=== PATIENT | female | born 1965 | race Hispanic/Latino ===

== ENCOUNTER 2018-01-31 08:58 | Outpatient (CLI) | payer OTHER ==
--- NOTE | 2018-01-31 12:10 | MRI ---
MRI BRAIN: HISTORY: Intractable headache. Migraine with aura. G43.109. FINDINGS: Multiplanar, multisequence pre- and postcontrast-enhanced MRI images of the brain obtained. MRI images demonstrate no evidence of intracranial masses, hemorrhages, strokes, or contusions. No e vidence of diffusion restriction seen. No significant evidence of intracranial pathology noted. No abnormal areas of intracranial enhancement seen. Moderate degree of right maxillary sinus mucosal th ickening is seen. IMPRESSION: Unremarkable pre- and postcontrast-enhanced MRI images of the brain. POS: YESSENIA
== END 2018-01-31 08:59 | disposition home or self-care (01) ==
LOC: SCSMRI 08:58
PROVIDERS: ATTEND Psychiatry & Neurology Neurology
DX: G43.109 Migraine with aura, not intractable, without status migrainosus (principal)
CPT/HCPCS: 70553

== ENCOUNTER 2018-09-04 13:48 | Outpatient (CLI) | payer OTHER ==
--- NOTE | 2018-09-04 15:27 | MMO ---
BILATERAL SCREENING MAMMOGRAMS: DATE: 09/04/18 Reference made to prior mammograms dating back to 09/21/11. This patient's mammogram was interpreted with the assistance of computer-aided detection. FINDINGS: There is heterogeneously dense breast parenchyma bilaterally. Benign-appearing calcifications are pre sent within each breast, without evidence of dominant mass or suspicious cluster of microcalcificatio ns. IMPRESSION: BIRADS 2: Benign Finding(s) Annual screening mammography is recommended. POS: YESSENIA
== END 2018-09-04 13:49 | disposition home or self-care (01) ==
LOC: SCSMAMMO 13:48
PROVIDERS: ATTEND Family Medicine
DX: Z12.31 Encounter for screening mammogram for malignant neoplasm of breast (principal)
CPT/HCPCS: 77067

== ENCOUNTER 2019-10-28 07:32 | Outpatient (CLI) | payer OTHER ==
--- NOTE | 2019-10-28 08:14 | BD ---
DEXA BONE DENSITY SCAN: 10/28/2019 HISTORY: Postmenopausal female undergoing screening for osteoporosis. COMPARISON: None. FINDINGS: LUMBAR SPINE BMD (g/cm2) T-SCORE L1 0.849 -1.3 L2 0.900 -1.2 L3 0.837 -2.2 L4 0.899 -1.5 TOTAL 0.873 -1.6 FEMORAL NECK 0.671 -1.6 TOTAL 0.935 -0.1 The FRAX-WHO Fracture Risk Assessment Tool reports a 3% risk for a major osteoporotic fracture and a 0.3% risk for a hip fracture in an untreated patient. IMPRESSION: There is osteopenia within the lumbar spine and the femoral neck correlating with a moderately increa sed risk for fracture. Transcribed Date/Time: 10/28/2019 9:55 AM
--- NOTE | 2019-10-28 08:42 | MMO ---
Bilateral MAMMO Bilat Screen [facility]. CLINICAL HISTORY: Patient is 54 years old and is seen for screening. The patient has no family history of breast cancer. The patient has no personal history of cancer. VIEWS: The views performed were: bilateral craniocaudal; bilateral mediolateral oblique; and right exaggerated craniocaudal. FILMS COMPARED: The present examination has been compared to prior imaging studies performed at [facility] [place] on 08/27/2014, 08/29/2015, 08/30/2016 and 09/02/2017. This study has been interpreted with the assistance of computer-aided detection. MAMMOGRAM FINDINGS: There are scattered fibroglandular densities. There are benign appearing calcifications seen in both breasts. There are no suspicious masses, suspicious calcifications, or new areas of architectural distortion. IMPRESSION: THERE IS NO MAMMOGRAPHIC EVIDENCE OF MALIGNANCY. A ROUTINE FOLLOW-UP MAMMOGRAM IN 1 YEAR IS RECOMMENDED. ACR BI-RADS Category 2 - Benign finding MAMMOGRAPHY NOTE: 1. A negative mammogram report should not delay a biopsy if a dominant of clinically suspicious mass is present. 2. Approximately 10% to 15% of breast cancers are not detected by mammography. 3. Adenosis and dense breasts may obscure an underlying neoplasm. Reported by: ROCIO NASH MD Electonically Signed: [id number]
== END 2019-10-28 07:33 | disposition home or self-care (01) ==
LOC: BICMAMMO 07:32
PROVIDERS: ATTEND Family Medicine
DX: Z12.31 Encounter for screening mammogram for malignant neoplasm of breast (principal); Z13.820 Encounter for screening for osteoporosis; M85.89 Other specified disorders of bone density and structure, multiple sites
CPT/HCPCS: 77067; 77080

== ENCOUNTER 2021-01-18 06:45 | Outpatient (CLI) | payer OTHER | END 2021-01-18 06:46 | disposition home or self-care (01) | LOC: BICULT 06:45 | PROVIDERS: ATTEND Nurse Practitioner Family | DX: Z12.31 Encounter for screening mammogram for malignant neoplasm of breast (principal); N95.0 Postmenopausal bleeding; N85.4 Malposition of uterus; D25.9 Leiomyoma of uterus, unspecified | CPT/HCPCS: 76856; 77067 ==

== ENCOUNTER 2021-08-01 10:27 | Outpatient (CLI) | payer OTHER | END 2021-08-01 10:28 | disposition home or self-care (01) | LOC: BICULT 10:27 | PROVIDERS: ATTEND Nurse Practitioner Family | DX: R74.8 Abnormal levels of other serum enzymes (principal); K76.9 Liver disease, unspecified | CPT/HCPCS: 76705 ==

== ENCOUNTER 2021-08-11 07:15 | Outpatient (CLI) | payer OTHER ==
[2021-08-11] MEDS ORDERED: Iopamidol 370 76% 100 ML VIAL ONE (10:47)
== END 2021-08-11 07:16 | disposition home or self-care (01) ==
LOC: BICCT 07:15
PROVIDERS: ATTEND Nurse Practitioner Family
DX: R16.0 Hepatomegaly, not elsewhere classified (principal)
CPT/HCPCS: 74160; Q9967

== ENCOUNTER 2021-08-17 01:04 | Inpatient (IN) | payer OTHER ==
[2021-08-17] MEDS ORDERED: Ondansetron PF 4 MG/2 ML Vial ONE (04:15)
[2021-08-17] MEDS ORDERED: Morphine 4 MG/ML VIAL ONE (04:15)
[2021-08-17 04:44] LABS: #Basophils 0.1 thou/uL (0.0-0.2); #Lymphocytes 1.4 thou/uL (1.20-3.40); #Monocytes 0.4 thou/uL (0.11-0.59); #Neutrophils 6.1 thou/uL (1.40-6.50); %Basophils 0.6 % (0.0-1.0); %Eosinophils 0.6 % (0.0-10.0); %Monocytes 4.5 % (0.0-10.0); %Neutrophils 77.3 % (42.0-75.0); Hemoglobin 13.9 g/dL (12.0-16.0); Mean Corpuscular HGB CONC 35.1 g/dL (32.0-36.0); Mean Corpuscular Hemoglobin 32.3 pg (27.0-31.0); Mean Corpuscular Volume 92.1 fL (78.0-98.0); Mean Platelet Volume 7.2 fL (7.4-10.4); Platelet Count 251 thou/uL (130-400); RBC Distribution Width 12.2 % (11.5-14.5); Red Blood Cell (RBC) Count 4.32 mill/uL (4.20-5.40); White Blood Cell (WBC) Count 7.9 thou/uL (4.8-10.8)
[2021-08-17 04:54] LABS: ALT (SGPT) 120 U/L (8-55); AST (SGOT) 93 U/L (5-34); Albumin 4.3 g/dL (3.5-5.0); Alkaline Phosphatase 801 U/L (40-110); Anion Gap 13 mmol/L (10-20); BUN (Urea Nitrogen) 15 mg/dL (9.8-20.1); Bilirubin, Total 4.1 mg/dL (0.2-1.2); Calc. Creatinine Clearance 0 mL/min (70-130); Carbon Dioxide 25 mmol/L (22-29); Chloride 100 mmol/L (98-107); Globulin 3.9 g/dL (2.4-3.5); Glucose 138 mg/dL (70-105); Lipase 28 U/L (8-78); Potassium 3.9 mmol/L (3.5-5.1); Protein, Total 8.2 g/dL (6.0-8.3); Sodium 134 mmol/L (136-145)
[2021-08-17 07:08] LABS: Bilirubin Negative (Negative); Blood, Urine Negative (Negative); Clarity Extra Turbid (Clear); Glucose, Urine (Dipstick) Normal (Negative); Ketone, Urine Negative (Negative); Leukocyte Negative Leu/uL (Negative); Nitrite Negative (Negative); Protein, Urine (Dipstick) Negative (Neg-Trace); Specific Gravity, Urine 1.023 (1.002-1.036); Urobilinogen Normal mg/dL (Less than 2); pH, Urine 7.5 (5.0-9.0)
[2021-08-17] MEDS ORDERED: Iopamidol 370 76% 100 ML VIAL ONE (09:41)
[2021-08-17] MEDS ORDERED: Ondansetron ODT 4 MG TAB SL PRN (11:00)
[2021-08-17] MEDS ORDERED: Ondansetron PF 4 MG/2 ML Vial IVP PRN ×2 (11:00→14:43)
[2021-08-17] MEDS ORDERED: Acetaminophen 325 MG TAB PO PRN (11:00)
[2021-08-17] MEDS: Sodium Chloride 0.9% 1,000 ML IV SCH ×2 (12:29→21:45)
[2021-08-17] MEDS ORDERED: hydrALAZINE 20 MG/ML VIAL SLOW IVP PRN (14:43)
[2021-08-17] MEDS ORDERED: Ondansetron ODT 4 MG TAB PO PRN (14:43)
[2021-08-17] MEDS ORDERED: Labetalol HCl 100 MG/20 ML VIAL SLOW IVP PRN (14:43)
[2021-08-17 15:16] LABS: SARS-CoV-2 PCR by NAA Not Detected (NotDetected)
[2021-08-18] MEDS ORDERED: diphenhydrAMINE 50 MG/ML VIAL ONE (01:55)
[2021-08-18 06:58] LABS: #Eosinphils 0.1 thou/uL (0.0-0.7); #Lymphocytes 1.6 thou/uL (1.20-3.40); #Monocytes 0.4 thou/uL (0.11-0.59); #Neutrophils 3.2 thou/uL (1.40-6.50); %Basophils 0.3 % (0.0-1.0); %Eosinophils 2.5 % (0.0-10.0); %Lymphocytes 29.9 % (21.0-51.0); %Monocytes 7.3 % (0.0-10.0); %Neutrophils 60.1 % (42.0-75.0); Hemoglobin 11.8 g/dL (12.0-16.0); Mean Corpuscular HGB CONC 34.1 g/dL (32.0-36.0); Mean Corpuscular Hemoglobin 31.6 pg (27.0-31.0); Mean Corpuscular Volume 92.7 fL (78.0-98.0); Mean Platelet Volume 7.5 fL (7.4-10.4); Platelet Count 211 thou/uL (130-400); RBC Distribution Width 12.3 % (11.5-14.5); Red Blood Cell (RBC) Count 3.74 mill/uL (4.20-5.40); White Blood Cell (WBC) Count 5.4 thou/uL (4.8-10.8)
[2021-08-18 07:18] LABS: ALT (SGPT) 95 U/L (8-55); AST (SGOT) 68 U/L (5-34); Albumin 3.3 g/dL (3.5-5.0); Alkaline Phosphatase 661 U/L (40-110); Anion Gap 11 mmol/L (10-20); BUN (Urea Nitrogen) 12 mg/dL (9.8-20.1); Calc. Creatinine Clearance 99 mL/min (70-130); Calcium 8.5 mg/dL (7.8-10.44); Carbon Dioxide 20 mmol/L (22-29); Chloride 111 mmol/L (98-107); Globulin 3.3 g/dL (2.4-3.5); Glucose 99 mg/dL (70-105); Potassium 3.8 mmol/L (3.5-5.1); Protein, Total 6.6 g/dL (6.0-8.3); Sodium 138 mmol/L (136-145)
[2021-08-18 07:21] LABS: INR-International Normal Ratio 0.9; PTT 29.6 sec (22.9-36.1); Prothrombin Time 11.9 sec (12.0-14.7)
[2021-08-18] MEDS ORDERED: diphenhydrAMINE 25 MG CAP PO PRN (07:37)
[2021-08-18] MEDS: Morphine 2 MG/ML VIAL SLOW IVP PRN ×2 (08:01→15:34)
[2021-08-18] MEDS: Sodium Chloride 0.9% 1,000 ML IV SCH ×2 (08:03→18:18)
[2021-08-18] MEDS ORDERED: Sodium Bicarbonate 2.5 MEQ/5 ML VIAL ONE (12:59)
[2021-08-18] MEDS ORDERED: Midazolam HCl 2 mg/2 ml Vial ONE (12:59)
[2021-08-18] MEDS ORDERED: Fentanyl 100 MCG/2 ML VIAL ONE (13:00)
[2021-08-18] MEDS ORDERED: Albuterol Sulfate 2.5 mg/3 ml Neb NEB PRN (14:19)
[2021-08-18] MEDS: levETIRAcetam 500 MG TAB PO SCH (21:18)
[2021-08-18] MEDS: Topiramate 100 MG TAB PO SCH (21:19)
[2021-08-18] MEDS: lamoTRIgine 100 MG TAB PO SCH (21:20)
[2021-08-19] MEDS: Morphine 2 MG/ML VIAL SLOW IVP PRN (03:58)
[2021-08-19] MEDS: Sodium Chloride 0.9% 1,000 ML IV SCH ×2 (03:58→14:42)
[2021-08-19 04:37] VITALS: BMI 25.4
[2021-08-19 06:59] LABS: #Eosinphils 0.1 thou/uL (0.0-0.7); #Lymphocytes 1.7 thou/uL (1.20-3.40); #Monocytes 0.4 thou/uL (0.11-0.59); #Neutrophils 3.2 thou/uL (1.40-6.50); %Basophils 0.4 % (0.0-1.0); %Eosinophils 1.4 % (0.0-10.0); %Lymphocytes 32.1 % (21.0-51.0); %Monocytes 6.6 % (0.0-10.0); %Neutrophils 59.6 % (42.0-75.0); Hemoglobin 11.1 g/dL (12.0-16.0); Mean Corpuscular Hemoglobin 33.8 pg (27.0-31.0); Mean Corpuscular Volume 93.7 fL (78.0-98.0); Mean Platelet Volume 7.2 fL (7.4-10.4); Platelet Count 182 thou/uL (130-400); RBC Distribution Width 12.4 % (11.5-14.5); White Blood Cell (WBC) Count 5.4 thou/uL (4.8-10.8)
[2021-08-19 07:16] LABS: ALT (SGPT) 88 U/L (8-55); AST (SGOT) 64 U/L (5-34); Albumin 3.1 g/dL (3.5-5.0); Alkaline Phosphatase 606 U/L (40-110); Anion Gap 10 mmol/L (10-20); BUN (Urea Nitrogen) 9 mg/dL (9.8-20.1); Bilirubin, Total 3.3 mg/dL (0.2-1.2); Calc. Creatinine Clearance 114 mL/min (70-130); Calcium 8.1 mg/dL (7.8-10.44); Carbon Dioxide 20 mmol/L (22-29); Chloride 112 mmol/L (98-107); Globulin 2.6 g/dL (2.4-3.5); Glucose 93 mg/dL (70-105); Potassium 3.8 mmol/L (3.5-5.1); Protein, Total 5.7 g/dL (6.0-8.3); Sodium 138 mmol/L (136-145)
[2021-08-19] MEDS: lamoTRIgine 100 MG TAB PO SCH (08:07)
[2021-08-19] MEDS: levETIRAcetam 500 MG TAB PO SCH (08:07)
[2021-08-19] MEDS: Topiramate 100 MG TAB PO SCH (08:07)
[2021-08-19] MEDS ORDERED: Losartan/Hydrochlorothiazide 100 mg/25 mg Tablet PO SCH (09:00)
[2021-08-19 12:22] VITALS: BP 114/73; TEMP 98.5
== END 2021-08-19 15:25 | disposition home or self-care (01) | DRG 437 ==
LOC: ERS 01:04 → SURG B 08:45
PROVIDERS: ADMIT Internal Medicine; ATTEND Internal Medicine
PROC: 0FB03ZX Excision of Liver, Percutaneous Approach, Diagnostic (ICD-10-PCS; principal; 2021-08-18)
DX: C22.1 Intrahepatic bile duct carcinoma (principal); E78.5 Hyperlipidemia, unspecified; K83.8 Other specified diseases of biliary tract; Z20.822 Contact with and (suspected) exposure to COVID-19; G40.909 Epilepsy, unspecified, not intractable, without status epilepticus; F25.9 Schizoaffective disorder, unspecified; I10 Essential (primary) hypertension; I95.9 Hypotension, unspecified; E78.00 Pure hypercholesterolemia, unspecified; J45.909 Unspecified asthma, uncomplicated; Z79.51 Long term (current) use of inhaled steroids; Z79.899 Other long term (current) drug therapy
CPT/HCPCS: 36415; 47000; 74177; 76705; 77012; 80053; 81003; 83690; 85025; 85610; 85730; 86301; 88307; 88313; 88333; 88341; 88342; 96374; 96375; J1200; J2250; J2270; J2405; J3010; J7050; Q0163; Q9967; U0003; U0005

== ENCOUNTER 2021-09-06 13:40 | Outpatient (CLI) | payer OTHER ==
[~2021-09-06 13:40] MED LIST: Iopamidol-370 76% 500 ML 1 ML ONE
== END 2021-09-06 13:41 | disposition home or self-care (01) ==
LOC: BICCT 13:40
PROVIDERS: ATTEND Internal Medicine Hematology & Oncology
DX: C22.8 Malignant neoplasm of liver, primary, unspecified as to type (principal); C22.1 Intrahepatic bile duct carcinoma; R16.0 Hepatomegaly, not elsewhere classified; K82.8 Other specified diseases of gallbladder; R91.8 Other nonspecific abnormal finding of lung field
CPT/HCPCS: 71260; Q9967

== ENCOUNTER 2021-11-07 09:13 | Outpatient (CLI) | payer OTHER | END 2021-11-07 09:14 | disposition home or self-care (01) | LOC: BICCT 09:13 | PROVIDERS: ATTEND Internal Medicine Hematology & Oncology | DX: C22.1 Intrahepatic bile duct carcinoma (principal); K57.30 Diverticulosis of large intestine without perforation or abscess without bleeding | CPT/HCPCS: 71260; 74177 ==

== ENCOUNTER 2021-12-24 11:47 | Emergency (ER) | payer MEDICAID, OTHER ==
[2021-12-24 13:15] LABS: #Lymphocytes 1.2 thou/uL (1.20-3.40); #Monocytes 0.5 thou/uL (0.11-0.59); #Neutrophils 3.1 thou/uL (1.40-6.50); %Basophils 0.2 % (0.0-1.0); %Eosinophils 0.8 % (0.0-10.0); %Lymphocytes 24.5 % (21.0-51.0); %Monocytes 11.3 % (0.0-10.0); %Neutrophils 63.2 % (42.0-75.0); Hemoglobin 12.2 g/dL (12.0-16.0); Mean Corpuscular HGB CONC 36.2 g/dL (32.0-36.0); Mean Corpuscular Hemoglobin 34.8 pg (27.0-31.0); Mean Corpuscular Volume 96.1 fL (78.0-98.0); Mean Platelet Volume 6.4 fL (7.4-10.4); Platelet Count 120 thou/uL (130-400); Red Blood Cell (RBC) Count 3.52 mill/uL (4.20-5.40); White Blood Cell (WBC) Count 4.8 thou/uL (4.8-10.8)
[2021-12-24] MEDS ORDERED: Ondansetron PF 4 MG/2 ML Vial ONE (13:21)
[2021-12-24] MEDS ORDERED: Morphine 4 MG/ML VIAL ONE (13:22)
[2021-12-24 13:38] LABS: ALT (SGPT) 43 U/L (8-55); AST (SGOT) 55 U/L (5-34); Albumin 4.2 g/dL (3.5-5.0); Alkaline Phosphatase 409 U/L (40-110); Anion Gap 12 mmol/L (10-20); BUN (Urea Nitrogen) 17 mg/dL (9.8-20.1); Bilirubin, Total 0.6 mg/dL (0.2-1.2); Calc. Creatinine Clearance 0 mL/min (70-130); Calcium 9.5 mg/dL (7.8-10.44); Carbon Dioxide 26 mmol/L (22-29); Chloride 105 mmol/L (98-107); Globulin 3.8 g/dL (2.4-3.5); Glucose 144 mg/dL (70-105); Lipase 24 U/L (8-78); Potassium 3.6 mmol/L (3.5-5.1); Sodium 139 mmol/L (136-145)
[2021-12-24 14:08] LABS: Bilirubin Negative (Negative); Blood, Urine Negative (Negative); Clarity Clear (Clear); Glucose, Urine (Dipstick) Normal (Negative); Ketone, Urine Negative (Negative); Leukocyte Negative Leu/uL (Negative); Nitrite Negative (Negative); Protein, Urine (Dipstick) Negative (Neg-Trace); Specific Gravity, Urine 1.023 (1.002-1.036); Urobilinogen Normal mg/dL (Less than 2); pH, Urine 5.5 (5.0-9.0)
== END 2021-12-24 16:10 | disposition home or self-care (01) ==
LOC: ERS 11:47
DX: C22.9 Malignant neoplasm of liver, not specified as primary or secondary (principal); Z79.899 Other long term (current) drug therapy
CPT/HCPCS: 36415; 74177; 80053; 81003; 83690; 85025; 93005; 96374; 96375; J2270; J2405; Q9967

== ENCOUNTER 2022-02-16 07:52 | Outpatient (CLI) | payer OTHER ==
[2022-02-16] MEDS ORDERED: Iopamidol 370 76% 100 ML VIAL ONE (12:22)
== END 2022-02-16 07:53 | disposition home or self-care (01) ==
LOC: CT 07:52
PROVIDERS: ATTEND Internal Medicine Hematology & Oncology
DX: C22.1 Intrahepatic bile duct carcinoma (principal); C22.8 Malignant neoplasm of liver, primary, unspecified as to type; R18.8 Other ascites
CPT/HCPCS: 71260; 74177; Q9967

== ENCOUNTER 2022-02-20 08:49 | Day surgery (SDC) | payer OTHER ==
[2022-02-20] MEDS ORDERED: diphenhydrAMINE 25 MG CAP ONE (09:10)
[2022-02-20] MEDS ORDERED: Acetaminophen 500 MG TAB ONE (09:10)
[2022-02-20 14:12] VITALS: BP 118/57; TEMP 98.3
== END 2022-02-20 14:13 | disposition home or self-care (01) ==
LOC: ONC/OP 08:49
PROVIDERS: ATTEND Internal Medicine Hematology & Oncology
PROC: 30233N1 Transfusion of Nonautologous Red Blood Cells into Peripheral Vein, Percutaneous Approach (ICD-10-PCS; principal; 2022-02-20)
DX: D64.9 Anemia, unspecified (principal); D69.6 Thrombocytopenia, unspecified
CPT/HCPCS: 36430; 86850; 86900; 86901; J1642; P9016

== ENCOUNTER 2022-06-12 16:27 | Inpatient (IN) | payer OTHER ==
[2022-06-12] MEDS ORDERED: Acetaminophen 500 MG TAB ONE (18:02)
[2022-06-12 18:21] LABS: Hemoglobin 5.5 g/dL (12.0-16.0); Mean Corpuscular HGB CONC 34.8 g/dL (32.0-36.0); Mean Corpuscular Hemoglobin 35.4 pg (27.0-31.0); Mean Platelet Volume 7.7 fL (7.4-10.4); Platelet Count 22 thou/uL (130-400); RBC Distribution Width 15.9 % (11.5-14.5); Red Blood Cell (RBC) Count 1.55 mill/uL (4.20-5.40); White Blood Cell (WBC) Count 1.8 thou/uL (4.8-10.8)
[2022-06-12] MEDS ORDERED: Pantoprazole 40 MG VIAL ONE (18:32)
[2022-06-12 18:35] LABS: Anisocytosis SLIGHT = 6-15 cells (100X) (0-5/hpf); Band 16 % (5-11); Lymphocytes 13 % (21-51); MDiff Complete? YES; Macrocytosis SLIGHT = 6-15 cells (100X) (0-5/hpf); Monocytes 23 % (0-10); Neutrophil 47 % (42-75); Ovalocytes SLIGHT = 2-5 cells (100X) (0-1/hpf); Platelet Morphology Comment Appears Decreased; Polychromasia MODERATE = 3-4 cells (100X) (0-2/hpf); Reactive Lymphocytes 1 % (0-10); Reflex for Review?? YES
[2022-06-12 18:40] LABS: ALT (SGPT) 17 U/L (8-55); AST (SGOT) 29 U/L (5-34); Albumin 3.1 g/dL (3.5-5.0); Alkaline Phosphatase 98 U/L (40-110); Anion Gap 11 mmol/L (10-20); BUN (Urea Nitrogen) 22 mg/dL (9.8-20.1); Bilirubin, Total 0.5 mg/dL (0.2-1.2); CK (CPK) 71 U/L (29-168); Calc. Creatinine Clearance 0 mL/min (70-130); Calcium 8.3 mg/dL (7.8-10.44); Carbon Dioxide 23 mmol/L (22-29); Chloride 107 mmol/L (98-107); Estimated GFR 102; Globulin 2.6 g/dL (2.4-3.5); Glucose 122 mg/dL (70-105); Lipase 36 U/L (8-78); Potassium 3.8 mmol/L (3.5-5.1); Protein, Total 5.7 g/dL (6.0-8.3); Sodium 137 mmol/L (136-145)
[2022-06-12 18:44] LABS: INR-International Normal Ratio 1.3; Prothrombin Time 15.9 sec (12.0-14.7)
[2022-06-12 18:45] LABS: PTT 34.8 sec (22.9-36.1)
[2022-06-12 19:47] LABS: Bacteria/HPF None Seen HPF (None Seen); Bilirubin Negative (Negative); Blood, Urine Trace (Negative); Clarity Clear (Clear); Glucose, Urine (Dipstick) Normal (Negative); Ketone, Urine Negative (Negative); Leukocyte Negative Leu/uL (Negative); Nitrite Negative (Negative); Protein, Urine (Dipstick) Negative (Neg-Trace); RBC/HPF 0-3 HPF (0-3); Specific Gravity, Urine 1.009 (1.002-1.036); Squamous Epithelial 0-3 HPF (0-3); Urobilinogen Normal mg/dL (Less than 2); WBC/HPF 0-3 HPF (0-3)
[2022-06-12 19:50] LABS: SARS-CoV-2 NAA Rapid Test DETECTED (NotDetected)
[2022-06-12] MEDS ORDERED: Ondansetron ODT 4 MG TAB SL PRN (23:00)
[2022-06-12] MEDS ORDERED: Ondansetron PF 4 MG/2 ML Vial IVP PRN (23:00)
[2022-06-12] MEDS ORDERED: Acetaminophen 325 MG TAB PO PRN (23:00)
[2022-06-12] MEDS: Sodium Chloride 0.9% 1,000 ML IV SCH (23:40)
[2022-06-13 00:07] VITALS: BMI 28.8
[2022-06-13 05:09] LABS: Anion Gap 8 mmol/L (10-20); BUN (Urea Nitrogen) 18 mg/dL (9.8-20.1); Calc. Creatinine Clearance 120 mL/min (70-130); Calcium 7.7 mg/dL (7.8-10.44); Carbon Dioxide 22 mmol/L (22-29); Chloride 113 mmol/L (98-107); Estimated GFR 108; Glucose 87 mg/dL (70-105); Potassium 3.5 mmol/L (3.5-5.1); Sodium 139 mmol/L (136-145)
[2022-06-13 05:44] LABS: Band 8 % (5-11); Eosinophils 2 % (0-10); Hemoglobin 8.3 g/dL (12.0-16.0); Lymphocytes 32 % (21-51); MDiff Complete? YES; Mean Corpuscular Volume 97.1 fL (78.0-98.0); Metamyelocyte 1 % (0-0); Monocytes 8 % (0-10); Neutrophil 48 % (42-75); Nucleated RBC 1 % (0); Platelet Count 37 thou/uL (130-400); Platelet Morphology Comment Appears Decreased; RBC Distribution Width 14.9 % (11.5-14.5); RBC Morphology Normal; Red Blood Cell (RBC) Count 2.45 mill/uL (4.20-5.40); White Blood Cell (WBC) Count 1.8 thou/uL (4.8-10.8)
[2022-06-13] MEDS: Sodium Chloride 0.9% 1,000 ML IV SCH (07:12)
[2022-06-13] MEDS: Pantoprazole 40 MG VIAL IVP SCH ×2 (08:00→20:34)
[2022-06-13 12:33] LABS: Hemoglobin 9.2 g/dL (12.0-16.0)
[2022-06-13 21:04] LABS: Hemoglobin 9.4 g/dL (12.0-16.0)
[2022-06-14 04:14] LABS: Anion Gap 10 mmol/L (10-20); BUN (Urea Nitrogen) 11 mg/dL (9.8-20.1); Calc. Creatinine Clearance 114 mL/min (70-130); Calcium 7.4 mg/dL (7.8-10.44); Carbon Dioxide 21 mmol/L (22-29); Chloride 111 mmol/L (98-107); Estimated GFR 106; Glucose 82 mg/dL (70-105); Potassium 3.2 mmol/L (3.5-5.1); Sodium 139 mmol/L (136-145)
[2022-06-14 04:35] LABS: Band 8 % (5-11); Hypochromia SLIGHT = 6-15 cells (100X) (0-5/hpf); Lymphocytes 16 % (21-51); MDiff Complete? YES; Mean Corpuscular HGB CONC 35.4 g/dL (32.0-36.0); Mean Corpuscular Hemoglobin 33.8 pg (27.0-31.0); Mean Corpuscular Volume 95.4 fL (78.0-98.0); Mean Platelet Volume 8.4 fL (7.4-10.4); Monocytes 16 % (0-10); Neutrophil 60 % (42-75); Platelet Count 31 thou/uL (130-400); Platelet Morphology Comment Appears Decreased; RBC Distribution Width 15.7 % (11.5-14.5); Red Blood Cell (RBC) Count 2.95 mill/uL (4.20-5.40); White Blood Cell (WBC) Count 1.5 thou/uL (4.8-10.8)
[2022-06-14] MEDS: Pantoprazole 40 MG VIAL IVP SCH (07:42)
[2022-06-14] MEDS ORDERED: Potassium Chloride 20 MEQ TAB PO SCH (12:30)
[2022-06-14 12:31] VITALS: TEMP 98.4
[2022-06-14 13:52] LABS: Hemoglobin 9.8 g/dL (12.0-16.0)
[2022-06-16] MEDS ORDERED: Prevnar 13-Val Conj/PF 0.5 ML SYRINGE IM ONE (09:00)
== END 2022-06-14 16:47 | disposition home or self-care (01) | DRG 177 ==
LOC: ERS 16:27 → IMCU/EMU 21:02
PROVIDERS: ADMIT Internal Medicine; ATTEND Internal Medicine
PROC: 8E0ZXY6 Isolation (ICD-10-PCS; principal; 2022-06-12)
PROC: 30233N1 Transfusion of Nonautologous Red Blood Cells into Peripheral Vein, Percutaneous Approach (ICD-10-PCS; 2022-06-12)
PROC: 30233R1 Transfusion of Nonautologous Platelets into Peripheral Vein, Percutaneous Approach (ICD-10-PCS; 2022-06-13)
DX: U07.1 COVID-19 (principal); D61.810 Antineoplastic chemotherapy induced pancytopenia; D62 Acute posthemorrhagic anemia; C22.1 Intrahepatic bile duct carcinoma; K92.1 Melena; I10 Essential (primary) hypertension; Z23 Encounter for immunization; F20.9 Schizophrenia, unspecified; E78.00 Pure hypercholesterolemia, unspecified; T45.1X5A Adverse effect of antineoplastic and immunosuppressive drugs, initial encounter; G40.909 Epilepsy, unspecified, not intractable, without status epilepticus; Z79.51 Long term (current) use of inhaled steroids; Z79.82 Long term (current) use of aspirin; Z79.899 Other long term (current) drug therapy
CPT/HCPCS: 36415; 36430; 80048; 80053; 81003; 81015; 82550; 82728; 83550; 83605; 83690; 85025; 85060; 85610; 85730; 86850; 86860; 86870; 86880; 86900; 86901; 86905; 86922; 87040; 87086; 93005; 94760; C9113; J7050; P9016; P9035

== ENCOUNTER 2022-06-23 08:26 | Inpatient (IN) | payer OTHER ==
[2022-06-23 09:11] LABS: #Lymphocytes 0.3 thou/uL (1.20-3.40); #Monocytes 0.2 thou/uL (0.11-0.59); %Eosinophils 1.1 % (0.0-10.0); %Neutrophils 64.9 % (42.0-75.0)
[2022-06-23 09:13] LABS: Hemoglobin 5.3 g/dL (12.0-16.0); Mean Corpuscular HGB CONC 35.2 g/dL (32.0-36.0); Mean Corpuscular Hemoglobin 34.8 pg (27.0-31.0); Mean Corpuscular Volume 98.9 fL (78.0-98.0); Mean Platelet Volume 8.4 fL (7.4-10.4); Platelet Count 22 thou/uL (130-400); RBC Distribution Width 16.3 % (11.5-14.5); Red Blood Cell (RBC) Count 1.52 mill/uL (4.20-5.40); White Blood Cell (WBC) Count 1.6 thou/uL (4.8-10.8)
[2022-06-23 09:20] LABS: ALT (SGPT) 8 U/L (8-55); AST (SGOT) 12 U/L (5-34); Albumin 2.9 g/dL (3.5-5.0); Alkaline Phosphatase 90 U/L (40-110); Anion Gap 10 mmol/L (10-20); BUN (Urea Nitrogen) 19 mg/dL (9.8-20.1); Bilirubin, Total 0.3 mg/dL (0.2-1.2); Calc. Creatinine Clearance 0 mL/min (70-130); Calcium 7.8 mg/dL (7.8-10.44); Carbon Dioxide 22 mmol/L (22-29); Chloride 113 mmol/L (98-107); Estimated GFR 103; Globulin 2.2 g/dL (2.4-3.5); Glucose 153 mg/dL (70-105); Lipase 19 U/L (8-78); Potassium 3.6 mmol/L (3.5-5.1); Protein, Total 5.1 g/dL (6.0-8.3); Sodium 141 mmol/L (136-145)
[2022-06-23 09:34] LABS: Bacteria/HPF None Seen HPF (None Seen); Bilirubin Negative (Negative); Blood, Urine Negative (Negative); Clarity Clear (Clear); Glucose, Urine (Dipstick) Normal (Negative); Ketone, Urine Negative (Negative); Leukocyte 75 Leu/uL (Negative); Nitrite Negative (Negative); Protein, Urine (Dipstick) 10 mg/dL (Neg-Trace); RBC/HPF 0-3 HPF (0-3); Specific Gravity, Urine 1.032 (1.002-1.036); Urobilinogen Normal mg/dL (Less than 2)
[2022-06-23 09:37] LABS: INR-International Normal Ratio 1.1; PTT 31.3 sec (22.9-36.1); Prothrombin Time 14.6 sec (12.0-14.7)
[2022-06-23 11:57] LABS: Lactic Acid 1.5 mmol/L (0.5-2.2)
[2022-06-23] MEDS ORDERED: Prochlorperazine Maleate 5 MG TAB PO PRN (14:51)
[2022-06-23 16:02] LABS: #Lymphocytes 0.4 thou/uL (1.20-3.40); #Monocytes 0.3 thou/uL (0.11-0.59); #Neutrophils 1.2 thou/uL (1.40-6.50); %Lymphocytes 19.8 % (21.0-51.0); %Monocytes 14.4 % (0.0-10.0); %Neutrophils 63.8 % (42.0-75.0); Hemoglobin 6.6 g/dL (12.0-16.0); Mean Corpuscular HGB CONC 33.7 g/dL (32.0-36.0); Mean Corpuscular Volume 97.9 fL (78.0-98.0); Mean Platelet Volume 9.2 fL (7.4-10.4); Platelet Count 28 thou/uL (130-400); Red Blood Cell (RBC) Count 1.98 mill/uL (4.20-5.40); White Blood Cell (WBC) Count 1.9 thou/uL (4.8-10.8)
[2022-06-23 16:17] VITALS: BMI 29.0
[2022-06-23] MEDS: levETIRAcetam 500 MG TAB PO SCH (22:05)
[2022-06-23] MEDS: Topiramate 100 MG TAB PO SCH (22:05)
[2022-06-23] MEDS: lamoTRIgine 100 MG TAB PO SCH (22:06)
[2022-06-23] MEDS: Pantoprazole 40 MG VIAL IVP SCH (22:07)
[2022-06-24 00:49] LABS: #Lymphocytes 0.4 thou/uL (1.20-3.40); #Monocytes 0.3 thou/uL (0.11-0.59); #Neutrophils 1.8 thou/uL (1.40-6.50); %Eosinophils 0.8 % (0.0-10.0); %Lymphocytes 16.2 % (21.0-51.0); %Monocytes 10.8 % (0.0-10.0); %Neutrophils 72.1 % (42.0-75.0); Hemoglobin 8.2 g/dL (12.0-16.0); Mean Corpuscular HGB CONC 35.8 g/dL (32.0-36.0); Mean Corpuscular Hemoglobin 33.5 pg (27.0-31.0); Mean Corpuscular Volume 93.6 fL (78.0-98.0); Mean Platelet Volume 9.2 fL (7.4-10.4); Platelet Count 27 thou/uL (130-400); RBC Distribution Width 15.3 % (11.5-14.5); Red Blood Cell (RBC) Count 2.46 mill/uL (4.20-5.40); White Blood Cell (WBC) Count 2.5 thou/uL (4.8-10.8)
[2022-06-24 06:08] LABS: Anion Gap 8 mmol/L (10-20); BUN (Urea Nitrogen) 11 mg/dL (9.8-20.1); Calc. Creatinine Clearance 103 mL/min (70-130); Calcium 8.1 mg/dL (7.8-10.44); Carbon Dioxide 24 mmol/L (22-29); Chloride 113 mmol/L (98-107); Estimated GFR 104; Glucose 98 mg/dL (70-105); Potassium 4.7 mmol/L (3.5-5.1); Sodium 140 mmol/L (136-145)
[2022-06-24] MEDS ORDERED: Ketamine 50 MG/ML (10ML VIAL) ONE (07:10)
[2022-06-24] MEDS ORDERED: PROPOFOL 200 MG/20 ML VIAL ONE (08:03)
[2022-06-24] MEDS ORDERED: ePHEDrine 50 MG/ML VIAL ONE (08:03)
[2022-06-24] MEDS ORDERED: Promethazine HCl 25 MG/ML VIAL IM PRN (08:50)
[2022-06-24] MEDS ORDERED: Promethazine HCl 25 MG/ML VIAL IVPB PRN (08:50)
[2022-06-24] MEDS ORDERED: Ondansetron HCl/PF 4 MG/2 ML Vial IVP PRN (08:50)
[2022-06-24] MEDS: Topiramate 100 MG TAB PO SCH ×2 (10:32→20:48)
[2022-06-24] MEDS: lamoTRIgine 100 MG TAB PO SCH ×2 (10:32→20:48)
[2022-06-24] MEDS: levETIRAcetam 500 MG TAB PO SCH ×2 (10:32→20:47)
[2022-06-24] MEDS: Pantoprazole 40 MG VIAL IVP SCH ×2 (10:33→20:52)
[2022-06-24] MEDS: Acetaminophen 325 MG TAB PO PRN (20:48)
[2022-06-25 05:53] LABS: Anion Gap 11 mmol/L (10-20); BUN (Urea Nitrogen) 9 mg/dL (9.8-20.1); Calc. Creatinine Clearance 110 mL/min (70-130); Carbon Dioxide 20 mmol/L (22-29); Chloride 112 mmol/L (98-107); Estimated GFR 106; Glucose 150 mg/dL (70-105); Potassium 3.4 mmol/L (3.5-5.1); Sodium 140 mmol/L (136-145)
[2022-06-25] MEDS ORDERED: Potassium Chloride 20 MEQ TAB PO SCH (07:45)
[2022-06-25] MEDS: Acetaminophen 325 MG TAB PO PRN ×2 (09:13→17:41)
[2022-06-25] MEDS: levETIRAcetam 500 MG TAB PO SCH (09:14)
[2022-06-25] MEDS: lamoTRIgine 100 MG TAB PO SCH (09:14)
[2022-06-25] MEDS: Topiramate 100 MG TAB PO SCH (09:15)
[2022-06-25] MEDS: Pantoprazole 40 MG VIAL IVP SCH (09:18)
[2022-06-25 10:39] LABS: #Lymphocytes 0.5 thou/uL (1.20-3.40); #Monocytes 0.5 thou/uL (0.11-0.59); #Neutrophils 4.6 thou/uL (1.40-6.50); %Eosinophils 0.3 % (0.0-10.0); %Lymphocytes 9.2 % (21.0-51.0); %Monocytes 8.6 % (0.0-10.0); %Neutrophils 81.9 % (42.0-75.0); Mean Corpuscular HGB CONC 33.3 g/dL (32.0-36.0); Mean Corpuscular Hemoglobin 32.4 pg (27.0-31.0); Mean Corpuscular Volume 97.4 fL (78.0-98.0); Mean Platelet Volume 9.2 fL (7.4-10.4); Platelet Count 34 thou/uL (130-400); Red Blood Cell (RBC) Count 2.45 mill/uL (4.20-5.40); White Blood Cell (WBC) Count 5.7 thou/uL (4.8-10.8)
[2022-06-25 16:35] VITALS: BP 118/74; TEMP 97.9
== END 2022-06-25 18:50 | disposition home or self-care (01) | DRG 377 ==
LOC: ERS 08:26 → SJJU 10:04
PROVIDERS: ADMIT Hospitalist; ATTEND Hospitalist
PROC: 30233N1 Transfusion of Nonautologous Red Blood Cells into Peripheral Vein, Percutaneous Approach (ICD-10-PCS; 2022-06-23)
PROC: 6A550Z2 Pheresis of Platelets, Single (ICD-10-PCS; 2022-06-23)
PROC: 0W3P8ZZ Control Bleeding in Gastrointestinal Tract, Via Natural or Artificial Opening Endoscopic (ICD-10-PCS; principal; 2022-06-24)
PROC: 8E0ZXY6 Isolation (ICD-10-PCS; 2022-06-24)
DX: K25.4 Chronic or unspecified gastric ulcer with hemorrhage (principal); U07.1 COVID-19; C22.1 Intrahepatic bile duct carcinoma; D61.818 Other pancytopenia; Z20.822 Contact with and (suspected) exposure to COVID-19; K21.00 Gastro-esophageal reflux disease with esophagitis, without bleeding; R74.01 Elevation of levels of liver transaminase levels; G40.909 Epilepsy, unspecified, not intractable, without status epilepticus; I10 Essential (primary) hypertension; K31.89 Other diseases of stomach and duodenum; Z79.899 Other long term (current) drug therapy
CPT/HCPCS: 36415; 36430; 71045; 80048; 80053; 81003; 81015; 83605; 83690; 84484; 85025; 85610; 85730; 86850; 86900; 86901; 86922; 93005; C9113; J2704; J3490; P9016; P9035

== ENCOUNTER 2022-07-20 08:47 | Outpatient (CLI) | payer OTHER ==
[2022-07-20] MEDS ORDERED: Iopamidol-370 76% 500 ML 1 ML ONE (15:13)
== END 2022-07-20 08:48 | disposition home or self-care (01) ==
LOC: BICCT 08:47
PROVIDERS: ATTEND Internal Medicine Hematology & Oncology
DX: C22.1 Intrahepatic bile duct carcinoma (principal)
CPT/HCPCS: 71260; 74177

== ENCOUNTER 2022-07-25 12:04 | Inpatient (IN) | payer OTHER ==
[2022-07-25 12:47] LABS: #Lymphocytes 0.5 thou/uL (1.20-3.40); #Monocytes 0.4 thou/uL (0.11-0.59); #Neutrophils 3.6 thou/uL (1.40-6.50); %Basophils 0.5 % (0.0-1.0); %Eosinophils 0.3 % (0.0-10.0); %Lymphocytes 11.2 % (21.0-51.0); Hemoglobin 4.6 g/dL (12.0-16.0); Mean Corpuscular HGB CONC 33.6 g/dL (32.0-36.0); Mean Corpuscular Hemoglobin 31.4 pg (27.0-31.0); Mean Corpuscular Volume 93.5 fL (78.0-98.0); Mean Platelet Volume 7.9 fL (7.4-10.4); Platelet Count 35 thou/uL (130-400); Red Blood Cell (RBC) Count 1.45 mill/uL (4.20-5.40); White Blood Cell (WBC) Count 4.5 thou/uL (4.8-10.8)
[2022-07-25 13:05] LABS: ALT (SGPT) 8 U/L (8-55); AST (SGOT) 12 U/L (5-34); Albumin 3.2 g/dL (3.5-5.0); Alkaline Phosphatase 97 U/L (40-110); Anion Gap 11 mmol/L (10-20); BUN (Urea Nitrogen) 21 mg/dL (9.8-20.1); Bilirubin, Total 0.4 mg/dL (0.2-1.2); Calc. Creatinine Clearance 0 mL/min (70-130); Calcium 8.1 mg/dL (7.8-10.44); Carbon Dioxide 23 mmol/L (22-29); Chloride 109 mmol/L (98-107); Estimated GFR 100; Globulin 2.5 g/dL (2.4-3.5); Glucose 126 mg/dL (70-105); Protein, Total 5.7 g/dL (6.0-8.3); Sodium 139 mmol/L (136-145)
[2022-07-25] MEDS ORDERED: Pantoprazole 40 MG VIAL ONE (14:28)
[2022-07-25] MEDS ORDERED: Ondansetron PF 4 MG/2 ML Vial IVP PRN (15:16)
[2022-07-25] MEDS ORDERED: Ondansetron ODT 4 MG TAB PO PRN (15:16)
[2022-07-25] MEDS ORDERED: Acetaminophen 325 MG TAB PO PRN (15:16)
[2022-07-25] MEDS ORDERED: Senokot S 8.6-50 MG TAB PO PRN (15:16)
[2022-07-25] MEDS ORDERED: traMADol HCl 50 MG TAB PO PRN (15:20)
[2022-07-25] MEDS ORDERED: Pantoprazole 40 MG VIAL IVP SCH (15:30)
[2022-07-25 17:56] VITALS: BMI 26.9
[2022-07-25 19:41] LABS: SARS-CoV-2 NAA Rapid Test Not Detected (NotDetected)
[2022-07-25] MEDS: Topiramate 100 MG TAB PO SCH (20:12)
[2022-07-25] MEDS: Pantoprazole 40 MG VIAL IVP SCH (20:13)
[2022-07-25] MEDS: Mirtazapine 30 MG Soltab PO SCH (20:13)
[2022-07-25] MEDS: lamoTRIgine 100 MG TAB PO SCH (20:13)
[2022-07-26] MEDS ORDERED: Pantoprazole 40 MG VIAL IVP SCH (09:00)
[2022-07-26] MEDS ORDERED: Lidocaine 1% MPF 2 ML VIAL ONE (10:01)
[2022-07-26] MEDS ORDERED: PROPOFOL 200 MG/20 ML VIAL ONE (10:01)
[2022-07-26] MEDS: Topiramate 100 MG TAB PO SCH ×2 (12:00→21:12)
[2022-07-26] MEDS: lamoTRIgine 100 MG TAB PO SCH ×2 (12:00→21:12)
[2022-07-26] MEDS: Cyanocobalamin (Vitamin B-12) 1,000 MCG TAB PO SCH (12:00)
[2022-07-26] MEDS: Calcium Carbonate 600 MG TAB PO SCH (12:00)
[2022-07-26] MEDS: Cholecalciferol 1,000 UNITS (25 MCG) TAB PO SCH (12:01)
[2022-07-26] MEDS: Pantoprazole 40 MG VIAL IVP SCH ×2 (12:01→21:12)
[2022-07-26 12:50] LABS: #Lymphocytes 0.6 thou/uL (1.20-3.40); #Monocytes 0.3 thou/uL (0.11-0.59); #Neutrophils 2.3 thou/uL (1.40-6.50); %Eosinophils 0.8 % (0.0-10.0); %Lymphocytes 18.8 % (21.0-51.0); %Monocytes 9.5 % (0.0-10.0); %Neutrophils 70.9 % (42.0-75.0); Hemoglobin 7.6 g/dL (12.0-16.0); Mean Corpuscular HGB CONC 32.7 g/dL (32.0-36.0); Mean Corpuscular Hemoglobin 29.6 pg (27.0-31.0); Mean Corpuscular Volume 90.4 fL (78.0-98.0); Mean Platelet Volume 8.1 fL (7.4-10.4); Platelet Count 37 thou/uL (130-400); RBC Distribution Width 17.9 % (11.5-14.5); Red Blood Cell (RBC) Count 2.57 mill/uL (4.20-5.40); White Blood Cell (WBC) Count 3.2 thou/uL (4.8-10.8)
[2022-07-26 13:09] LABS: ALT (SGPT) 10 U/L (8-55); AST (SGOT) 13 U/L (5-34); Albumin 3.1 g/dL (3.5-5.0); Alkaline Phosphatase 79 U/L (40-110); Anion Gap 10 mmol/L (10-20); BUN (Urea Nitrogen) 20 mg/dL (9.8-20.1); Bilirubin, Total 0.9 mg/dL (0.2-1.2); Calc. Creatinine Clearance 102 mL/min (70-130); Calcium 7.8 mg/dL (7.8-10.44); Carbon Dioxide 22 mmol/L (22-29); Chloride 112 mmol/L (98-107); Estimated GFR 104; Globulin 2.5 g/dL (2.4-3.5); Glucose 98 mg/dL (70-105); Potassium 3.6 mmol/L (3.5-5.1); Protein, Total 5.6 g/dL (6.0-8.3); Sodium 140 mmol/L (136-145)
[2022-07-26 15:47] LABS: INR-International Normal Ratio 1.2; PTT 30.9 sec (22.9-36.1); Prothrombin Time 15.6 sec (12.0-14.7)
[2022-07-26] MEDS: Mirtazapine 30 MG Soltab PO SCH (21:12)
[2022-07-27 08:03] VITALS: BP 111/67; TEMP 98.2
[2022-07-27 08:19] LABS: #Lymphocytes 0.5 thou/uL (1.20-3.40); #Monocytes 0.3 thou/uL (0.11-0.59); #Neutrophils 1.5 thou/uL (1.40-6.50); %Basophils 1.4 % (0.0-1.0); %Eosinophils 1.4 % (0.0-10.0); %Lymphocytes 19.8 % (21.0-51.0); %Monocytes 12.3 % (0.0-10.0); %Neutrophils 65.1 % (42.0-75.0); Hemoglobin 7.2 g/dL (12.0-16.0); Mean Corpuscular HGB CONC 34.8 g/dL (32.0-36.0); Mean Corpuscular Hemoglobin 31.3 pg (27.0-31.0); Mean Corpuscular Volume 89.8 fL (78.0-98.0); Mean Platelet Volume 7.9 fL (7.4-10.4); Platelet Count 41 thou/uL (130-400); RBC Distribution Width 18.8 % (11.5-14.5); White Blood Cell (WBC) Count 2.4 thou/uL (4.8-10.8)
[2022-07-27 08:31] LABS: Anion Gap 10 mmol/L (10-20); BUN (Urea Nitrogen) 18 mg/dL (9.8-20.1); Calc. Creatinine Clearance 106 mL/min (70-130); Calcium 7.7 mg/dL (7.8-10.44); Carbon Dioxide 21 mmol/L (22-29); Chloride 115 mmol/L (98-107); Estimated GFR 105; Glucose 112 mg/dL (70-105); Potassium 3.5 mmol/L (3.5-5.1); Sodium 142 mmol/L (136-145)
[2022-07-27] MEDS ORDERED: Nadolol 40 MG TAB PO SCH (09:00)
[2022-07-27] MEDS: Pantoprazole 40 MG VIAL IVP SCH (10:18)
[2022-07-27] MEDS: Calcium Carbonate 600 MG TAB PO SCH (10:18)
[2022-07-27] MEDS: Topiramate 100 MG TAB PO SCH (10:18)
[2022-07-27] MEDS: Cholecalciferol 1,000 UNITS (25 MCG) TAB PO SCH (10:18)
[2022-07-27] MEDS: Cyanocobalamin (Vitamin B-12) 1,000 MCG TAB PO SCH (10:19)
[2022-07-27] MEDS: lamoTRIgine 100 MG TAB PO SCH (10:19)
== END 2022-07-27 10:45 | disposition home or self-care (01) | DRG 808 ==
LOC: ERS 12:04 → T4-A 15:15 → OBSVTOIN 07-26 07:48
PROVIDERS: ADMIT Internal Medicine; ATTEND Internal Medicine
PROC: 6A550Z2 Pheresis of Platelets, Single (ICD-10-PCS; 2022-07-25)
PROC: 30233N1 Transfusion of Nonautologous Red Blood Cells into Peripheral Vein, Percutaneous Approach (ICD-10-PCS; principal; 2022-07-26)
DX: D61.818 Other pancytopenia (principal); I85.11 Secondary esophageal varices with bleeding; C22.1 Intrahepatic bile duct carcinoma; K76.6 Portal hypertension; Z20.822 Contact with and (suspected) exposure to COVID-19; G40.909 Epilepsy, unspecified, not intractable, without status epilepticus; I10 Essential (primary) hypertension; R63.0 Anorexia; K31.89 Other diseases of stomach and duodenum; K25.9 Gastric ulcer, unspecified as acute or chronic, without hemorrhage or perforation; D62 Acute posthemorrhagic anemia; Z68.27 Body mass index [BMI] 27.0-27.9, adult; Z79.899 Other long term (current) drug therapy
CPT/HCPCS: 36415; 36430; 80048; 80053; 82274; 85025; 85610; 85730; 86301; 86850; 86860; 86870; 86880; 86900; 86901; 86922; 94760; 96374; 96376; C9113; G0378; J1642; J2704; P9016; P9035; Q0162; U0002

== ENCOUNTER → 2022-07-31 | Day surgery (SDC) | payer OTHER ==
[~2022-07-31] MED LIST changes: +Acetaminophen 500 MG TAB ONE; +Acetaminophen 500 MG TAB PO SCH; -Iopamidol-370 76% 500 ML 1 ML ONE; +diphenhydrAMINE 25 MG CAP ONE; +diphenhydrAMINE 25 MG CAP PO SCH
[2022-07-31 17:07] VITALS: TEMP 98.6
[2022-07-31 17:08] VITALS: BP 116/56
[2022-07-31 18:25] LABS: #Lymphocytes 0.5 thou/uL (1.20-3.40); #Monocytes 0.3 thou/uL (0.11-0.59); #Neutrophils 1.4 thou/uL (1.40-6.50); %Basophils 0.4 % (0.0-1.0); %Eosinophils 1.8 % (0.0-10.0); %Lymphocytes 21.9 % (21.0-51.0); %Monocytes 11.4 % (0.0-10.0); %Neutrophils 64.5 % (42.0-75.0); Hemoglobin 8.5 g/dL (12.0-16.0); Mean Corpuscular HGB CONC 33.6 g/dL (32.0-36.0); Mean Corpuscular Hemoglobin 31.4 pg (27.0-31.0); Mean Corpuscular Volume 93.5 fL (78.0-98.0); Mean Platelet Volume 9.1 fL (7.4-10.4); Platelet Count 30 thou/uL (130-400); RBC Distribution Width 18.6 % (11.5-14.5); Red Blood Cell (RBC) Count 2.69 mill/uL (4.20-5.40); White Blood Cell (WBC) Count 2.2 thou/uL (4.8-10.8)
== END | disposition home or self-care (01) ==
LOC: ONC/OP 10:16
PROVIDERS: ATTEND Internal Medicine Hematology & Oncology
PROC: 30233N1 Transfusion of Nonautologous Red Blood Cells into Peripheral Vein, Percutaneous Approach (ICD-10-PCS; principal; 2022-07-31)
DX: D64.9 Anemia, unspecified (principal); D69.6 Thrombocytopenia, unspecified
CPT/HCPCS: 36430; 85025; 86850; 86900; 86901; 86922; J1642; P9016

== ENCOUNTER 2022-08-14 12:45 | Day surgery (SDC) | payer OTHER ==
[2022-08-14] MEDS ORDERED: Acetaminophen 500 MG TAB PO SCH (13:15)
[2022-08-14] MEDS ORDERED: diphenhydrAMINE 25 MG CAP PO SCH (13:15)
[2022-08-14] MEDS ORDERED: diphenhydrAMINE 25 MG CAP ONE (13:16)
[2022-08-14] MEDS ORDERED: Acetaminophen 500 MG TAB ONE (13:16)
[2022-08-14 17:02] VITALS: BP 141/64; TEMP 98.5
== END 2022-08-14 17:19 | disposition home or self-care (01) ==
LOC: ONC/OP 12:45
PROVIDERS: ATTEND Nurse Practitioner Family
PROC: 30233N1 Transfusion of Nonautologous Red Blood Cells into Peripheral Vein, Percutaneous Approach (ICD-10-PCS; principal; 2022-08-14)
DX: D64.9 Anemia, unspecified (principal); D69.6 Thrombocytopenia, unspecified
CPT/HCPCS: 36430; 86850; 86900; 86901; 86922; J1642; P9016

== ENCOUNTER 2023-01-08 09:48 | Outpatient (CLI) | payer OTHER ==
[2023-01-08] MEDS ORDERED: Iopamidol 370 76% 100 ML VIAL ONE (11:06)
== END 2023-01-08 09:49 | disposition home or self-care (01) ==
LOC: BICCT 09:48
PROVIDERS: ATTEND Internal Medicine Hematology & Oncology
DX: C22.1 Intrahepatic bile duct carcinoma (principal); R91.1 Solitary pulmonary nodule; R16.1 Splenomegaly, not elsewhere classified; J81.1 Chronic pulmonary edema
CPT/HCPCS: 71260; 74177; 82565; Q9967

== ENCOUNTER 2023-02-14 14:16 | Outpatient (CLI) | payer OTHER | END 2023-02-14 14:17 | disposition home or self-care (01) | LOC: ULT 14:16 | PROVIDERS: ATTEND Nurse Practitioner Family | DX: N93.9 Abnormal uterine and vaginal bleeding, unspecified (principal); R93.89 Abnormal findings on diagnostic imaging of other specified body structures | CPT/HCPCS: 76856 ==

== ENCOUNTER 2023-03-05 10:22 | Outpatient (CLI) | payer OTHER | END 2023-03-05 10:23 | disposition home or self-care (01) | LOC: BICCT 10:22 | PROVIDERS: ATTEND Internal Medicine Hematology & Oncology | DX: C22.1 Intrahepatic bile duct carcinoma (principal); R91.1 Solitary pulmonary nodule; C34.12 Malignant neoplasm of upper lobe, left bronchus or lung | CPT/HCPCS: 71260; 74177 ==

== ENCOUNTER 2023-05-28 09:39 | Outpatient (CLI) | payer OTHER | END 2023-05-28 09:40 | disposition home or self-care (01) | LOC: BICCT 09:39 | PROVIDERS: ATTEND Internal Medicine Hematology & Oncology | DX: C22.1 Intrahepatic bile duct carcinoma (principal); R16.0 Hepatomegaly, not elsewhere classified; R93.5 Abnormal findings on diagnostic imaging of other abdominal regions, including retroperitoneum | CPT/HCPCS: 71260; 74177 ==

== ENCOUNTER 2023-10-01 09:30 | Outpatient (CLI) | payer OTHER | END 2023-10-01 09:31 | disposition home or self-care (01) | LOC: BICCT 09:30 | PROVIDERS: ATTEND Internal Medicine Hematology & Oncology | DX: C22.1 Intrahepatic bile duct carcinoma (principal); R91.1 Solitary pulmonary nodule | CPT/HCPCS: 71260; 74177; 82565 ==

== ENCOUNTER 2023-12-19 09:52 | Outpatient (CLI) | payer OTHER ==
[2023-12-19] MEDS ORDERED: Iopamidol 370 76% 100 ML VIAL ONE (14:28)
== END 2023-12-19 09:53 | disposition home or self-care (01) ==
LOC: BICCT 09:52
PROVIDERS: ATTEND Internal Medicine Hematology & Oncology
DX: C22.1 Intrahepatic bile duct carcinoma (principal); R97.8 Other abnormal tumor markers; R41.89 Other symptoms and signs involving cognitive functions and awareness; R16.0 Hepatomegaly, not elsewhere classified
CPT/HCPCS: 71260; 74177

== ENCOUNTER 2024-01-19 04:17 | Emergency (ER) | payer OTHER ==
[2024-01-19 08:02] LABS: Bacteria/HPF None Seen HPF (None Seen); Bilirubin Negative (Negative); Blood, Urine 1+ (Negative); CAUTI Indications for Culture Dysuria,urgency,freq; Clarity Clear (Clear); Glucose, Urine (Dipstick) Normal (Negative); Ketone, Urine Negative (Negative); Leukocyte 75 Leu/uL (Negative); Nitrite Negative (Negative); Pregnancy Test - Urine (BHCG) Negative (Negative); Protein, Urine (Dipstick) 30 mg/dL (Neg-Trace); Specific Gravity, Urine 1.031 (1.002-1.036); Squamous Epithelial 0-3 HPF (0-3); Urobilinogen 12 mg/dL (Less than 2)
[2024-01-19 08:03] LABS: Pregu Control Background? CLEAR/WHITE (CLR/WHITE); Pregu Control Bar Appear? YES (CONTROL BAR); Specific Gravity 1.031 (1.002-1.036)
[2024-01-19 08:04] LABS: Urine Culture Reflex No No
== END 2024-01-19 10:19 | disposition home or self-care (01) ==
LOC: ERS 04:17
DX: N76.0 Acute vaginitis (principal); B37.9 Candidiasis, unspecified; I10 Essential (primary) hypertension; G40.909 Epilepsy, unspecified, not intractable, without status epilepticus
CPT/HCPCS: 81001; 81025; 87480; 87510; 87660; 99283

== ENCOUNTER 2024-03-27 11:46 | Day surgery (SDC) | payer OTHER ==
[2024-03-27] MEDS ORDERED: diphenhydrAMINE 25 MG CAP PO SCH (12:00)
[2024-03-27] MEDS ORDERED: Acetaminophen 500 MG TAB ONE (13:06)
[2024-03-27] MEDS: Acetaminophen 500 MG TAB PO SCH (13:06)
[2024-03-27 17:01] VITALS: BP 139/65; TEMP 97.8
== END 2024-03-27 17:12 | disposition home or self-care (01) ==
LOC: ONC/OP 11:46
PROVIDERS: ATTEND Internal Medicine Hematology & Oncology
DX: D64.9 Anemia, unspecified (principal); D69.6 Thrombocytopenia, unspecified; D69.3 Immune thrombocytopenic purpura; C22.1 Intrahepatic bile duct carcinoma
CPT/HCPCS: 36415; 36430; 80053; 86301; 86850; 86870; 86900; 86901; 86922; J1642; P9016; P9035

== ENCOUNTER 2024-04-07 10:19 | Day surgery (SDC) | payer OTHER ==
[2024-04-07] MEDS ORDERED: diphenhydrAMINE 25 MG CAP PO SCH (10:45)
[2024-04-07] MEDS ORDERED: Acetaminophen 500 MG TAB ONE (11:17)
[2024-04-07] MEDS: Acetaminophen 500 MG TAB PO SCH (11:19)
[2024-04-07 13:38] VITALS: BP 96/54; TEMP 97.8
== END 2024-04-07 12:52 | disposition home or self-care (01) ==
LOC: ONC/OP 10:19
PROVIDERS: ATTEND Internal Medicine Hematology & Oncology
DX: D64.9 Anemia, unspecified (principal); D69.6 Thrombocytopenia, unspecified
CPT/HCPCS: 36430; 86900; 86901; J1642; P9035

== ENCOUNTER 2024-04-09 08:25 | Outpatient (CLI) | payer OTHER | END 2024-04-09 08:26 | disposition home or self-care (01) | LOC: CT 08:25 | PROVIDERS: ATTEND Internal Medicine Hematology & Oncology | DX: C22.1 Intrahepatic bile duct carcinoma (principal); K76.6 Portal hypertension; R16.1 Splenomegaly, not elsewhere classified; I85.00 Esophageal varices without bleeding; K63.89 Other specified diseases of intestine; R18.8 Other ascites; R60.9 Edema, unspecified; K31.89 Other diseases of stomach and duodenum; K76.89 Other specified diseases of liver; I87.1 Compression of vein | CPT/HCPCS: 71260; 74177 ==

== ENCOUNTER 2024-04-10 10:46 | Day surgery (SDC) | payer OTHER ==
[2024-04-10] MEDS ORDERED: diphenhydrAMINE 25 MG CAP PO SCH (11:00)
[2024-04-10] MEDS: Acetaminophen 500 MG TAB PO SCH (12:09)
[2024-04-10] MEDS: Acetaminophen 500 MG TAB ONE (14:31)
[2024-04-10 14:33] VITALS: BP 118/56; TEMP 97.7
== END 2024-04-10 14:50 | disposition home or self-care (01) ==
LOC: ONC/OP 10:46
PROVIDERS: ATTEND Internal Medicine Hematology & Oncology
DX: D64.9 Anemia, unspecified (principal); D69.6 Thrombocytopenia, unspecified
CPT/HCPCS: 36430; 86850; 86900; 86901; 86922; J1642; P9016